=== PATIENT | male | born 1940 | race Caucasian/White ===

== ENCOUNTER 2021-07-09 06:30 | Day surgery (SDC) | payer OTHER, BC ==
--- NOTE | 2021-07-08 11:29 | RAD REPORT ---
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 Lungs: No evidence of edema or pneumonia. Pleural: No significant pleural effusions or pneumothorax. Cardiac: The heart size is within normal limits. Bones: No acute fractures. Other: IMPRESSION: No acute cardiopulmonary disease.
[2021-07-08 11:43] LABS: Absolute Lymphocytes (CBC) 1.3 K/uL (0.7-4.9); Hematocrit 48.6 % (39.6-49.0); Lymphocytes % 15.6 % (15.3-44.8); MPV 7.8 fL (7.6-11.3); RBC Red Blood Cell Count 5.09 M/uL (4.33-5.43)
[2021-07-08 11:47] LABS: Protime INR 0.93
[2021-07-08 11:48] LABS: Potassium 4.6 mmol/L (3.5-5.1)
--- NOTE | 2021-07-08 12:32 | EKG ---
Test Date: 2021-07-08 Test Time: 10:41:20 Neckties Painter: MECCA MEASUREMENT RESULTS: Intervals: Rate: 74 IA: 222 QRSD: 90 QT: 372 QTc: 412 [place]: P: 58 IA: 222 QRS: 87 T: -20 INTERPRETIVE STATEMENTS: Sinus rhythm with 1st degree AV block ST & T wave abnormality, consider inferior ischemia Abnormal ECG Compared to ECG 10/22/2013 11:19:10 First degree AV block now present ST (T wave) deviation now present Possible ischemia now present Sinus bradycardia no longer present Sinus arrhythmia no longer present Electronically Signed On 07-08-21 12:31:26 CDT by Evan Zhong
[~2021-07-09 06:30] MED LIST: ATROPINE SULF 1 MG/10 ML SYR IV ONE; FENTANYL CITR 100 MCG/2 ML ONE; HEPA 1000U/500MLS 1,000 UNIT/500 ML BAG IV ONE; LIDOCAINE 1% MPF 5 ML VIAL ONE; MIDAZOLAM HCL 2 MG/2 ML INJ ONE; NA CHLORIDE 0.9% 0 ML ONE; NITROGLYCERIN 100 MCG/ML SYR (for cath lab use only) IV ONE; NITROGLYCERIN/D5W 25 MG/250 ML BTL IV ONE
[2021-07-09] MEDS ORDERED: NA CHLORIDE 0.9% 500 ML ONE (06:46)
[2021-07-09] MEDS ORDERED: MIDAZOLAM HCL 2 MG/2 ML INJ ONE (07:22)
[2021-07-09] MEDS ORDERED: HEPA 1000U/500MLS 1,000 UNIT/500 ML BAG IV ONE (07:25)
[2021-07-09 09:47] VITALS: BP 143/68; O2SAT 95
--- NOTE | 2021-07-09 09:58 | OP ---
Date of Procedure: 07/09/2021 Surgeon: Evan Zhong MD Computer Numeric Control Setter: Ms. Miroslava Maxwell. Procedures: Left heart catheterization, selective coronary arteriogram, abdominal angiogram with run -off. Indication: CAD, PAD, positive stress test, positive arterial Doppler. Procedure In Detail: Mr. Darvin Stiles, brought to the optical laboratory technician today as an outpatient, prepped and drap ed in routine sterile fashion. Given Versed and fentanyl for sedation. A 6-Dominican sheath introduced in the right common femoral artery successfully. Angiography there showed a complete occlusion of t he SFA. StarClose was used to close the case. Dana catheter left and right were used to cannulat e the left main and right main respectively. He was found to have a 50% mid RCA, 50% proximal LAD, 3 0% left main, 40% LAD in the mid area with an ulcerated plaque. A pigtail catheter was introduced la ter above the renals and abdominal angiogram showed normal renal arteries, normal aorta, normal iliac s, had complete occlusion of bilateral SFA. On the right side, the SFA reconstituted at the distal S FA. On the left side, it constituted at the popliteal with decent distal vessels bilaterally. Anesthesia: Total conscious sedation was 60 minutes. Complications: None. Blood Loss: 5 mL. Postoperative Diagnoses: Moderate coronary artery disease and severe peripheral arterial disease. Plan: Probable bilateral femoral-popliteal surgery. I will review the films with Dr. Riley and dexter CV Surgery. We will probably plan medical therapy for the heart at this point. The patient will r emain in the hospital for 2 hours of bedrest after his StarClose. I will make arrangements for followup do wn the road. NB/MODL Voice ID: [id number] Report ID: [id number]
== END 2021-07-09 10:08 | disposition home or self-care (01) ==
LOC: CCL 06:30
DX: I25.10 Atherosclerotic heart disease of native coronary artery without angina pectoris (principal); I70.213 Atherosclerosis of native arteries of extremities with intermittent claudication, bilateral legs; I70.92 Chronic total occlusion of artery of the extremities; I65.23 Occlusion and stenosis of bilateral carotid arteries; I10 Essential (primary) hypertension; I44.0 Atrioventricular block, first degree; E78.2 Mixed hyperlipidemia; E11.9 Type 2 diabetes mellitus without complications; Z87.891 Personal history of nicotine dependence; Z79.84 Long term (current) use of oral hypoglycemic drugs; Z79.899 Other long term (current) drug therapy; Z20.822 Contact with and (suspected) exposure to COVID-19; Z82.49 Family history of ischemic heart disease and other diseases of the circulatory system
CPT/HCPCS: 93005; 85025; 80048; 36415; 85610; 82947 ×2; 85730; 71046; 75630; 93454; U0003; C1893; Q9966; J2250 ×2; J3010; J7040; J1644 ×2; J0583

== ENCOUNTER 2022-12-09 06:30 | Day surgery (SDC) | payer OTHER, BC ==
[2022-12-08 11:05] LABS: Absolute Lymphocytes (CBC) 1.3 K/uL (0.7-4.9); Hematocrit 45.9 % (39.6-49.0); Lymphocytes % 11.4 % (15.3-44.8); MCV 94.8 fL (80-100); MPV 7.5 fL (7.6-11.3); Platelets 267 thou/uL (152-406); RBC Red Blood Cell Count 4.84 M/uL (4.33-5.43)
[2022-12-08 11:20] LABS: Potassium 4.1 mEq/L (3.5-5.1)
--- NOTE | 2022-12-08 11:24 | RAD REPORT ---
EXAM DESCRIPTION: RAD - Chest Pa And Lat (2 Views) - 12/08/2022 10:36 am CLINICAL HISTORY: pre procedure, former smoker. COMPARISON: Chest Pa And Lat (2 Views) dated 07/08/2021; Chest Pa And Lat (2 Views) dated 01/12/2016; CHEST PA AND LAT 2 VIEW dated 06/25/2014; CHEST PA AND LAT 2 VIEW dated 11/04/2010 FINDINGS: Lines: None. Lungs: Emphysema without superimposed acute process. Pleural: No significant pleural effusions or pneumothorax. Cardiac: The heart size is within normal limits. Mediastinum: Within normal limits. Bones: No acute fractures. Other: None IMPRESSION: Emphysema without superimposed acute process.
[2022-12-09] MEDS ORDERED: FENTANYL CITR 100 MCG/2 ML ONE ×4 (07:11→18:41)
[2022-12-09] MEDS ORDERED: LIDOCAINE 1% 20 ML MDV ONE (07:11)
[2022-12-09] MEDS ORDERED: MIDAZOLAM HCL 2 MG/2 ML INJ ONE (07:11)
[2022-12-09] MEDS ORDERED: HEPA 1000U/500MLS 2,000 UNIT/1,000 ML BAG IV ONE (07:11)
[2022-12-09] MEDS ORDERED: NITROGLYCERIN 100 MCG/ML SYR (for cath lab use only) IV ONE (07:12)
[2022-12-09] MEDS ORDERED: ASPIRIN 325 MG TAB ONE (07:12)
[2022-12-09] MEDS ORDERED: ATROPINE SULF 1 MG/10 ML SYR IV ONE (07:12)
[2022-12-09] MEDS ORDERED: TICAGRELOR 90 MG TABLET PO ONE (07:12)
[2022-12-09] MEDS ORDERED: HEPARIN 10,000 UNIT/10 ML VIAL IV ONE ×2 (07:12→09:06)
[2022-12-09] MEDS ORDERED: NITROGLYCERIN/D5W 50 MG/250 ML BTL IV ONE (07:12)
[2022-12-09] MEDS ORDERED: CLOPIDOGREL 75 MG TABLET ONE (07:12)
[2022-12-09] MEDS ORDERED: NA CHLORIDE 0.9% 500 ML ONE (07:24)
[2022-12-09] MEDS ORDERED: HEPA 1000U/500MLS 1,000 UNIT/500 ML BAG IV ONE ×2 (09:06→09:53)
[2022-12-09] MEDS ORDERED: ACETAMINOPHEN 325 MG TABLET ONE (11:53)
--- NOTE | 2022-12-09 12:34 | OP ---
Date of Procedure: 12/09/2022 Surgeon: DOMINGA TOLBERT Procedures Performed: 1.Peripheral angiogram. 2.Balloon angioplasty of severe 100% stenosis of the right common femoral, right SFA, and right popl iteal artery. I used 6.0 x 120 mm drug-coated balloon. Access: Left femoral artery 6-Martiniquais closed with manual pressure. Complications: None. Bleeding: Less than 20 mL. Anesthesia: Total sedation time was 90 minutes. Used fentanyl and Versed. Description Of Procedure: After risks, benefits, alternatives were explained, patient agreed to proc edure and signed informed consent. Patient was brought in cardiac catheterization laboratory, preppe d and draped in the usual sterile fashion. Then, I accessed left femoral artery using micropuncture kit, ultrasound guidance, and fluoroscopy, placed 6-Martiniquais Wana sheath. Then, took OmniFlush cat heter over Latty Advantage into distal aorta across the other side and then exchanged for a 6-Martiniquais 64 cm destination sheath and placed it in the right external iliac artery and performed angiogram. T he common femoral artery was 100% occluded. Then, using a Latty Advantage wire, I was able to cross the stenosis all the way to popliteal artery, gave systemic heparin to assure ACT level above 250, an d then I used initially 4 x 120 mm balloon, created a channel and then I used a 6 x 120 mm drug-coate d balloon with excellent expansion reducing the stenosis from 100% to 60%, but with sluggish flow. T hen final angiogram was satisfactory. I removed the sheath and manual pressure was applied for closu re with good hemostasis. Findings: 1.Distal aorta is patent. 2.Right common iliac, right external iliac with mild disease. 3.The right common femoral is totally occluded, status post successful balloon angioplasty as above, the right SFA is totally occluded, status post balloon angioplasty as above and the right popliteal artery was totally occluded, status post balloon angioplasty as above. Plan: Start Eliquis and revisit in about 6 weeks and might need to do a stent in the femoral artery and a stent distal to the SFA stent to establish a 100% flow. SR/MODL Voice ID: [id number] Report ID: [id number]
[2022-12-09] MEDS ORDERED: HEPARIN/D5W 25,000 UNIT/500 ML BAG IV PRN (16:17)
[2022-12-09] MEDS ORDERED: HEPARIN 5000 UNIT/ML 1 ML VIAL ONE (16:36)
[2022-12-09] MEDS ORDERED: HEPARIN 10,000 UNIT/10 ML VIAL IV PRN (17:00)
[2022-12-09] MEDS ORDERED: HEPARIN 10,000 UNIT/10 ML VIAL IV SCH (17:00)
--- NOTE | 2022-12-09 17:23 | RAD REPORT ---
EXAM DESCRIPTION: US - Lower Extremity Artery Uni Ltd - 12/09/2022 5:01 pm CLINICAL HISTORY: Leg pain COMPARISON: None FINDINGS: Patient has a stent within the right common and superficial femoral artery. The proximal aspect of th e stent is patent. Remainder of the stent is occluded. The stent appears to terminate in the distal s uperficial femoral artery. Monophasic waveform diminished in amplitude right popliteal and posterior tibial arteries. No flow se en within the right dorsalis pedis artery Grayscale, color and spectral analysis performed on all vessels IMPRESSION: Most of the right femoral arterial stent is occluded
[2022-12-09 18:58] VITALS: BP 133/96; O2SAT 96
== END 2022-12-09 19:25 | disposition short-term general hospital (02) ==
LOC: CCL 06:30
PROVIDERS: ATTEND Internal Medicine
DX: I70.223 Atherosclerosis of native arteries of extremities with rest pain, bilateral legs (principal); I70.92 Chronic total occlusion of artery of the extremities; I25.10 Atherosclerotic heart disease of native coronary artery without angina pectoris; I65.23 Occlusion and stenosis of bilateral carotid arteries; I10 Essential (primary) hypertension; E11.9 Type 2 diabetes mellitus without complications; E78.2 Mixed hyperlipidemia; Z87.891 Personal history of nicotine dependence; Z79.82 Long term (current) use of aspirin; Z79.84 Long term (current) use of oral hypoglycemic drugs; Z79.899 Other long term (current) drug therapy; Z82.49 Family history of ischemic heart disease and other diseases of the circulatory system
CPT/HCPCS: 85025; 80048; 36415; 85610; 82947; 85347 ×6; 85730; 71046; 37224; 76937; 93926; C1893; C1725; C1769; J1644; J2001; J2250; J3010 ×4; J7040; 36200; 36245; J0461

== ENCOUNTER 2023-01-24 08:53 | Day surgery (SDC) | payer OTHER, BC ==
[2023-01-24] MEDS ORDERED: NA CHLORIDE 0.9% 1,000 ML ONE (09:59)
[2023-01-24 10:11] LABS: Absolute Lymphocytes (CBC) 0.6 K/uL (0.7-4.9); Lymphocytes % 12.4 % (15.3-44.8); MPV 7.6 fL (7.6-11.3); Platelets 225 thou/uL (152-406); RBC Red Blood Cell Count 3.69 M/uL (4.33-5.43)
[2023-01-24 10:16] LABS: Potassium 3.5 mEq/L (3.5-5.1)
[2023-01-24] MEDS ORDERED: propofoL 200 MG/20 ML VIAL IV ONE (12:00)
[2023-01-24 15:12] VITALS: O2SAT 95
[2023-01-24 15:14] VITALS: BP 130/54; TEMP 97.4
--- NOTE | 2023-01-25 13:45 | EKG ---
Test Date: 2023-01-24 Test Time: 10:36:34 Data Analytics Architect: TELMA MEASUREMENT RESULTS: Intervals: Rate: 44 [place]: QRSD: 96 QT: 494 QTc: 422 [place]: P: [place]: QRS: 63 T: 22 INTERPRETIVE STATEMENTS: Sinus bradycardia ST abnormality, possible digitalis effect Abnormal ECG Compared to ECG 07/08/2021 10:41:20 Possible ischemia no longer present ST (T wave) deviation still present Electronically Signed On 01-25-23 13:40:37 CATERING DRIVER by Rivas Riley
== END 2023-01-24 13:30 | disposition home or self-care (01) ==
LOC: OR 08:53
PROVIDERS: ATTEND Surgery
PROC: 0DD38ZX Extraction of Lower Esophagus, Via Natural or Artificial Opening Endoscopic, Diagnostic (ICD-10-PCS; principal; 2023-01-24 12:00)
DX: K22.2 Esophageal obstruction (principal); K22.10 Ulcer of esophagus without bleeding; K21.9 Gastro-esophageal reflux disease without esophagitis; E11.9 Type 2 diabetes mellitus without complications; I10 Essential (primary) hypertension; I25.10 Atherosclerotic heart disease of native coronary artery without angina pectoris; I73.9 Peripheral vascular disease, unspecified; E78.00 Pure hypercholesterolemia, unspecified; M19.90 Unspecified osteoarthritis, unspecified site; Z87.891 Personal history of nicotine dependence; Z79.899 Other long term (current) drug therapy; Z82.49 Family history of ischemic heart disease and other diseases of the circulatory system
CPT/HCPCS: 36415; 80048; 85025; 88305; 88312; 93005; J2704; J7030